=== PATIENT | male | born 1955 | race African-American/Black ===

== ENCOUNTER 2016-11-07 14:40 | Emergency (ER) | payer MEDICAID, OTHER ==
[~2016-11-07] VITALS: Ht 182.9 cm; Wt 110.7 kg
[2016-11-07 16:43] LABS: BASOPHILS % (AUTO) 1.4 % (0.0-2.0); EOSINOPHILS % (AUTO) 0.5 % (0.0-3.0); LYMPHOCYTES % (AUTO) 23.6 % (20.0-45.0); MEAN CORPUSCULAR HEMOGLOBIN 20.1 PG (27.0-31.0); MEAN CORPUSCULAR HGB CONC 31.2 G/DL (32.0-36.0); MEAN CORPUSCULAR VOLUME 64 FL (80-99); MONOCYTES % (AUTO) 9.2 % (1.0-10.0); NEUTROPHILS % (AUTO) 65.2 % (45.0-75.0); PLATELET COUNT 382 K/UL (150-450); RED CELL DISTRIBUTION WIDTH 14.7 % (11.6-14.8); WHITE BLOOD COUNT 7.2 K/UL (4.8-10.8)
[2016-11-07 17:06] LABS: ALBUMIN/GLOBULIN RATIO 1.3 (1.0-2.7); CREATININE 1.6 mg/dL (0.7-1.2); GLOMERULAR FILTRATION RATE 53.2 mL/min (>60); POTASSIUM 4.4 mEQ/L (3.4-4.9); TOTAL PROTEIN 7.5 g/dL (6.6-8.7)
--- NOTE | 2016-11-07 18:07 | Emergency Room Report ---
History of Present Illness General Chief Complaint: Skin Rash/Abscess Source: Patient (Fatuma Park) Present Illness HPI 61-year-old male presents to emergency department complaining of itchy rash generalized over his body x2 weeks with swelling of the lower extremities. Patient states the rash began in the posterior knee is and eventually sped to the anterior proximal thighs, upper extremities chest back and neck. Patient reports severe itching unresponsive to hydrocortisone cream and triamcinolone cream. Patient states he was evaluated by dermatologists to stated that it was some type of reaction for which she was unsure of. Patient states dermatologists and not due to skin scrapings or biopsies he simply prescribed hydrocortisone been triamcinolone. Patient reports one scab on the right anterior calf with some increased erythema. Patient reports itching as the primary symptoms and states skinless flaking off. Patient denies fevers or chills patient denies changes in medications. Or new medications. Patient reports history of diabetes for which he takes metformin daily in addition to high cholesterol and high blood pressure. Patient states that 2 weeks ago he was seen for the rash and was prescribed oral steroids for which he did not take consistently as prescribed he denies changes to the rash since. Denies wheezing, swelling of the lips, tongue, or difficulty breathing. patient denies involvement of the palms or soles. Pt. states his glucose is consistently high despite taking oral medications, pt. denies Fevers, chills, abdominal pain, polyuria, polydipsia, Nausea or vomiting. Denies CP, Palpitations, LOC, AMS, dizziness, Changes in Vision, Sensation, paresthesias, or a sudden severe headache. (Fatuma Park) Allergies: Coded Allergies: No Known Allergies (Unverified , 11/07/16) Patient History Past Medical History: see triage record, DM, HTN Past Surgical History: none Pertinent Family History: none Immunizations: UTD Reviewed Nursing Documentation: PMH: Agreed, PSxH: Agreed (Fatuma Park) Nursing Documentation-PMH Past Medical History: No History, Except For Hx Hypertension: Yes Hx Diabetes: Yes (Fatuma Park) Review of Systems All Other Systems: negative except mentioned in HPI (Fatuma Park) Physical Exam Vital Signs Date Time Temp Pulse Resp B/P Pulse Ox O2 Delivery O2 Flow Rate FiO2 11/07/16 15:02 97.9 107 20 104/55 98 Room Air Sp02 EP Interpretation: reviewed, abnormal - tachycardic at 107 BPM General Appearance: no apparent distress, alert, GCS 15, non-toxic Head: normocephalic, atraumatic Eyes: bilateral eye PERRL, bilateral eye normal inspection ENT: hearing grossly normal, normal pharynx, no angioedema, normal voice Neck: full range of motion, supple/symm/no masses Respiratory: chest non-tender, lungs clear, normal breath sounds, speaking full sentences Cardiovascular #1: regular rate, rhythm, no edema Gastrointestinal: non tender, soft, no guarding, no rebound Rectal: deferred Genitourinary: normal inspection, no CVA tenderness Musculoskeletal: back normal, gait/station normal, normal range of motion, non- tender, no calf tenderness, Roxann's Sign negative Neurologic: alert, oriented x3, responsive, motor strength/tone normal, sensory intact, speech normal Psychiatric: judgement/insight normal, memory normal, mood/affect normal, no suicidal/homicidal ideation Skin: normal color, warm/dry, well hydrated, rash - nummular plaques that coalesce circulfrential on the bilateraly LE's, upper extremities, chest, back and neck there is dryness noted with silvery scale. the lower extremities are warm to the touch with mild erythema, there is one scabbed lesion noted on the right medial ankle. obvious excoriations. no evidence of infestation. Lymphatic: no adenopathy (Fatuma Park P.A.) Medical Decision Making PA Attestation Dr. Daley is my supervising Physician whom patient management has been discussed with. (Fatuma Park P.A.) Diagnostic Impression: Primary Impression: Rash and other nonspecific skin eruption Additional Impressions: Hyperglycemia Cellulitis Qualified Codes: L03.119 - Cellulitis of unspecified part of limb Renal insufficiency ER Course 61-year-old male presents to emergency department complaining of itchy rash generalized over his body x2 weeks with swelling of the lower extremities. Patient states the rash began in the posterior knee is and eventually spread to the anterior shins, proximal thighs, upper extremities chest back and neck. Patient reports severe itching unresponsive to hydrocortisone cream and triamcinolone cream. Patient states he was evaluated by dermatologists to stated that it was some type of reaction for which she was unsure of. Patient states dermatologists and not due to skin scrapings or biopsies he simply prescribed hydrocortisone been triamcinolone. Patient reports one scab on the right anterior calf with some increased erythema. Patient reports itching as the primary symptoms and states skinless flaking off. Patient denies fevers or chills patient denies changes in medications. Or new medications. Patient reports history of diabetes for which he takes metformin daily in addition to high cholesterol and high blood pressure. Patient states that 2 weeks ago he was seen for the rash and was prescribed oral steroids for which he did not take consistently as prescribed he denies changes to the rash since. Denies wheezing, swelling of the lips, tongue, or difficulty breathing. patient denies involvement of the palms or soles. Ddx considered but are not limited to cellulitis, scabies, shingles, varicella, dermatitis, urticaria, eczema, tinea, psoriasis, erythema multiforme, SJS, TEN Vital signs: are WNL, pt. is afebrile H&PE are most consistent with possible psoriasis- moderate. with secondary cellulitis. ORDERS: -CBC: unremarkable -CMP: elevated creatinine, and elevated glucose. ED INTERVENTIONS: -d/w pt. the results of his blood work, and that I will be increasing his dosage of metformin, discussed with pt. the importance of following up with his pcp as his kidney function is beginning to decline. DISCHARGE: At this time pt. is stable for d/c to home. Will provide printed patient care instructions, and any necessary prescriptions. Care plan and follow up instructions have been discussed with the patient prior to discharge. Labs Test 11/07/16 16:28 White Blood Count 7.2 K/UL (4.8-10.8) Red Blood Count 5.20 M/UL (4.70-6.10) Hemoglobin 10.4 G/DL (14.2-18.0) Hematocrit 33.4 % (42.0-52.0) Mean Corpuscular Volume 64 FL (80-99) Mean Corpuscular Hemoglobin 20.1 PG (27.0-31.0) Mean Corpuscular Hemoglobin Concent 31.2 G/DL (32.0-36.0) Red Cell Distribution Width 14.7 % (11.6-14.8) Platelet Count 382 K/UL (150-450) Mean Platelet Volume 7.0 FL (6.5-10.1) Neutrophils (%) (Auto) 65.2 % (45.0-75.0) Lymphocytes (%) (Auto) 23.6 % (20.0-45.0) Monocytes (%) (Auto) 9.2 % (1.0-10.0) Eosinophils (%) (Auto) 0.5 % (0.0-3.0) Basophils (%) (Auto) 1.4 % (0.0-2.0) Sodium Level 140 mEQ/L (135-145) Potassium Level 4.4 mEQ/L (3.4-4.9) Chloride Level 98 mEQ/L (98-107) Carbon Dioxide Level 22 mEQ/L (20-30) Anion Gap 20 (5-15) Blood Urea Nitrogen 25 mg/dL (7-23) Creatinine 1.6 mg/dL (0.7-1.2) Estimat Glomerular Filtration Rate 53.2 mL/min (>60) Glucose Level 405 mg/dL (74-106) Calcium Level 9.0 mg/dL (8.6-10.2) Total Bilirubin 0.6 mg/dL (0.0-1.2) Aspartate Amino Transf (AST/SGOT) 32 U/L (5-40) Alanine Aminotransferase (ALT/SGPT) 60 U/L (3-41) Alkaline Phosphatase 127 U/L (40-129) Total Protein 7.5 g/dL (6.6-8.7) Albumin 4.3 g/dL (3.5-5.2) Globulin 3.2 g/dL Albumin/Globulin Ratio 1.3 (1.0-2.7) (Fatuma Park P.A.) ER Course I examined this patient and agree with treatment plan. (Ludwig Daley M.D.) Last Vital Signs Date Time Temp Pulse Resp B/P Pulse Ox O2 Delivery O2 Flow Rate FiO2 11/07/16 15:02 97.9 107 20 104/55 98 Room Air (Fatuma Park P.A.) Disposition: HOME, SELF-CARE Condition: Stable Scripts Triamcinolone Acet (Triamcinolone Acetonide) 80 Gm Cream..g. 1 APPLIC TP BID, #80 GM 1 Refill Prov: Fatuma Park 11/07/16 Metformin Hcl* (METFORMIN HCL*) 1,000 Mg Tablet 1000 MG ORAL BID for 30 Days, #60 TAB Prov: Fatuma Park 11/07/16 Hydroxyzine HCl (Hydroxyzine HCl) 25 Mg Tablet 25 MG ORAL FOUR TIMES A DAY for 14 Days, #56 TAB Prov: Fatuma Park 11/07/16 Cephalexin* (KEFLEX*) 500 Mg Capsule 500 MG ORAL EVERY 12 HOURS for 7 Days, #14 CAP 0 Refills Prov: Fatuma Park 11/07/16 Referrals: [facility],REFERRING (PCP) Patient Instructions: Rash Additional Instructions: Take medications as directed. Follow up with PCP in 3-5 days to review your elevated blood sugar at 406, and Creatinine of 1.6, recommend evaluation by tire recapper. Return sooner to ED if new symptoms occur, or current symptoms become worse. Do not drink alcohol, drive, or operate heavy machinery while taking Hydroxyzine as this may cause drowsiness. - Please note that this Emergency Department Report was dictated using [employer] operator technology software, occasionally this can lead to erroneous entry secondary to interpretation by the dictation equipment. Fatuma Park Nov 07, 2016 18:07 Ludwig Daley M.D. Nov 08, 2016 04:37
[2016-11-07] MEDS ORDERED: CEPHALEXIN500 MG ORAL (18:10)
[2016-11-07] MEDS ORDERED: METFORMIN HCL1000 M1 ORAL (18:10)
[2016-11-07] MEDS ORDERED: ATARAX25 MG ORAL (18:10)
[2016-11-07] MEDS ORDERED: KENALOG 0.1% CR15 GM TP (18:10)
[2016-11-07 18:18] VITALS: BP 136/88
== END 2016-11-07 18:22 | disposition home or self-care (01) ==
LOC: EMR 15:30
DX: R21 Rash and other nonspecific skin eruption (principal); R73.9 Hyperglycemia, unspecified; L03.119 Cellulitis of unspecified part of limb; N28.9 Disorder of kidney and ureter, unspecified; I10 Essential (primary) hypertension; E11.9 Type 2 diabetes mellitus without complications
CPT/HCPCS: 36415; 80053; 85025; 99284